=== PATIENT | female | born 1995 ===

== ENCOUNTER 2016-04-01 16:05 | Observation (INO) | payer OTHER ==
[~2016-04-01 16:05] MED LIST: PREN-125 PO
== END 2016-04-01 17:45 | disposition home or self-care (01) | DRG 781 ==
LOC: LDRP 16:05
PROVIDERS: ADMIT Obstetrics & Gynecology; ATTEND Obstetrics & Gynecology
DX: O21.2 Late vomiting of pregnancy (principal); O26.893 Other specified pregnancy related conditions, third trimester; R10.2 Pelvic and perineal pain; M54.9 Dorsalgia, unspecified; Z3A.35 35 weeks gestation of pregnancy
CPT/HCPCS: 59025; 81002; G0378